=== PATIENT | female | born 1940 | race Caucasian/White ===

== ENCOUNTER 2017-05-08 18:08 | Emergency (ER) | payer MEDICARE, OTHER ==
[~2017-05-08] VITALS: Ht 160 cm; Wt 72.6 kg
[2017-05-08] MEDS ORDERED: ESOM40CA PO (18:28)
[2017-05-08] MEDS ORDERED: LOSA25TA3 PO (18:28)
[2017-05-08] MEDS ORDERED: CELE100C PO (18:28)
[2017-05-08] MEDS ORDERED: ROSU10TA PO (18:28)
--- NOTE | 2017-05-08 18:50 | NUR ---
PT IS IN ROOM #2A. DR TAMAYO EVALUATED THE PT.
[2017-05-08] MEDS ORDERED: ACETAMINOPHEN ES 500 MG TABLET PO ONE (19:00)
--- NOTE | 2017-05-08 19:23 | NUR ---
PT WAS D/C TO [facility]. D/C INSTRUCTIONS GIVEN TO THE PT.
[2017-05-08 19:24] VITALS: BP 136/79
[2017-05-08] MEDS ORDERED: ACETAMINOPHEN ES 500 MG TABLET ONE (19:31)
== END 2017-05-08 19:25 | disposition home or self-care (01) ==
LOC: ER 18:08
DX: S62.304A Unspecified fracture of fourth metacarpal bone, right hand, initial encounter for closed fracture (principal); I10 Essential (primary) hypertension; E78.5 Hyperlipidemia, unspecified; M19.90 Unspecified osteoarthritis, unspecified site; I48.91 Unspecified atrial fibrillation; Z90.49 Acquired absence of other specified parts of digestive tract; W01.0XXA Fall on same level from slipping, tripping and stumbling without subsequent striking against object, initial encounter; Y93.89 Activity, other specified; Y92.9 Unspecified place or not applicable; Y99.9 Unspecified external cause status
CPT/HCPCS: 73130; A4663